=== PATIENT | female | born 1955 | race Caucasian/White ===

== ENCOUNTER 2018-10-28 13:19 | Outpatient (CLI) | payer OTHER | END 2018-10-28 13:37 | disposition home or self-care (01) | LOC: SONOGRAMA 13:19 | DX: N63.41 Unspecified lump in right breast, subareolar (principal); N60.11 Diffuse cystic mastopathy of right breast ==

== ENCOUNTER 2018-11-18 06:26 | Day surgery (SDC) | payer OTHER ==
[~2018-11-18 06:26] MED LIST: LOSARTAN-HCTZ1 EAC1 PO; METROPOLOL PO; NORVASC5 MG PO; ZANTAC
== END 2018-11-18 13:30 | disposition home or self-care (01) ==
LOC: CIR.AMB 06:26
DX: D24.1 Benign neoplasm of right breast (principal)